=== PATIENT | female | born 1980 | race Caucasian/White ===

== ENCOUNTER 2017-10-15 09:51 | Emergency (ER) | payer SELFPAY ==
[~2017-10-15] VITALS: Ht 171.4 cm; Wt 53.5 kg
[2017-10-15 10:00] VITALS: BP 144/80; PULSE 86; RESP 18; O2SAT 99
--- NOTE | 2017-10-15 10:07 | PD ---
HPI Chief Complaint: Psychiatric Symptoms Time Seen by Provider: 10:00 Travel History International Travel<30 days: No Contact w/Intl Traveler<30days: No Traveled to known affect area: No History of Present Illness HPI 37-year-old female presents emergency department under the Orr act for suicidal attempt. Patient comes in with laceration to the left volar wrist , and right anterior ankle. Patient admits to doing the left wrist laceration, but is on sure how the right anterior ankle laceration occurred. Bleeding is controlled on both areas. Patient is due for tetanus. She denies loss of function in the left wrist and hand. She has no numbness or tingling. She denies significant pain. She has allergies to penicillin and prednisone. [facility] Past Medical History Asthma: Yes ?: Not Past Surgical History Other Surgery: Yes (breast) Social History Alcohol Use: Yes Tobacco Use: Yes Substance Use: No Allergies-Medications (Allergen,Severity, Reaction): Coded Allergies: Penicillins (Verified Allergy, Intermediate, 10/15/17) prednisone (Verified Allergy, Unknown, 10/15/17) Review of Systems Except as stated in HPI: all other systems reviewed are Neg General / Constitutional: No: Fever Eyes: No: Visual changes HENT: No: Headaches Cardiovascular: No: Chest Pain or Discomfort Respiratory: No: Shortness of Breath Gastrointestinal: No: Abdominal Pain Genitourinary: No: Dysuria Musculoskeletal: No: Pain Skin: Positive Lesions, No Rash Neurologic: No: Weakness Psychiatric: Positive: Depression (See history of present illness), Suicidal Ideations, No: Homicidal Ideation Endocrine: No: Polydipsia Hematologic/Lymphatic: No: Easy Bruising Physical Exam Narrative GENERAL: Patient appears in no obvious distress per SKIN: Warm and dry. Normal color. Normal turgor. Patient has superficial laceration to the right anterior ankle measuring 2-1/2 cm long it is not full- thickness. Patient is a full-thickness laceration to the volar left wrist measuring 2 cm in length. Bleeding is controlled on both lesions. HEAD: Atraumatic. Normocephalic. EYES: Pupils equal and round. No scleral icterus. No injection or drainage. ENT: No nasal bleeding or discharge. Mucous membranes pink and moist. Pharynx is clear. Airways patent NECK: Trachea midline. Supple and nontender CARDIOVASCULAR: Regular rate and rhythm. RESPIRATORY: No accessory muscle use. Clear to auscultation. Breath sounds equal bilaterally. GASTROINTESTINAL: Abdomen soft, non-tender, nondistended. Hepatic and splenic margins not palpable. MUSCULOSKELETAL: Extremities without clubbing, cyanosis, or edema. No obvious deformities. NEUROLOGICAL: Awake and alert. No obvious cranial nerve deficits. Motor grossly within normal limits. Five out of 5 muscle strength in the arms and legs. Normal speech. PSYCHIATRIC: Appropriate mood and affect; insight and judgment normal. Data Data Last Documented VS Vital Signs Date Time Temp Pulse Resp B/P (MAP) Pulse Ox O2 Delivery O2 Flow Rate FiO2 10/15/17 10:00 86 18 144/80 (101) 99 Orders Orders Complete Blood Count With Diff (10/15/17 10:05) Comprehensive Metabolic Panel (10/15/17 10:05) Thyroid Stimulating Hormone (10/15/17 10:05) Urinalysis - C+S If Indicated (10/15/17 10:05) Psych Screen (10/15/17 10:05) Drug Screen, Random Urine (10/15/17 10:05) Alcohol (Ethanol) (10/15/17 10:05) Lidocai-Epi 1%-1:100,000 Inj (Xylocaine- (10/15/17 10:15) Labs Laboratory Tests Test 10/15/17 10:15 White Blood Count 9.2 TH/MM3 Red Blood Count 4.20 MIL/MM3 Hemoglobin 14.5 GM/DL Hematocrit 39.9 % Mean Corpuscular Volume 95.2 FL Mean Corpuscular Hemoglobin 34.5 PG Mean Corpuscular Hemoglobin Concent 36.3 % Red Cell Distribution Width 12.1 % Platelet Count 270 TH/MM3 Mean Platelet Volume 8.6 FL Neutrophils (%) (Auto) 65.9 % Lymphocytes (%) (Auto) 23.7 % Monocytes (%) (Auto) 8.0 % Eosinophils (%) (Auto) 2.0 % Basophils (%) (Auto) 0.4 % Neutrophils # (Auto) 6.0 TH/MM3 Lymphocytes # (Auto) 2.2 TH/MM3 Monocytes # (Auto) 0.7 TH/MM3 Eosinophils # (Auto) 0.2 TH/MM3 Basophils # (Auto) 0.0 TH/MM3 CBC Comment AUTO DIFF MDM Medical Decision Making Medical Screen Exam Complete: Yes Emergency Medical Condition: Yes Differential Diagnosis Suicidal ideation. Suicidal attempt. Depression. Need for sutures. Narrative Course Patient is medically stable at time of exam. Psychiatric labs ordered per protocol. Lacerations are repaired. See laceration notes. Patient is medically cleared for psychiatric evaluation. Psych screen is ordered. Procedures Procedure Narrative LACERATION #1 LOCATION: Right anterior ankle LENGTH: 2.5 cm NUMBER OF STITCHES/ARUN: 3/4 inch Steri-Strips REPAIR: The area of the laceration was prepped with Betadine and sterilely draped. The wound was copiously irrigated and explored without evidence of foreign body, tendon injury or neurovascular injury. The wound was closed using Steri-Strips and Dermabond. This was a single layer repair. A sterile dressing was applied. The patient was advised to keep the dressing clean and dry. Patient tolerated the procedure well. LACERATION LOCATION: Left distal volar wrist LENGTH: 2 cm NUMBER OF STITCHES/ARUN: 7 interrupted horizontal mattress sutures REPAIR: The area of the laceration was prepped with Betadine and sterilely draped. The laceration was infiltrated with 3 mL's 1% lidocaine with epi. The wound was copiously irrigated and explored without evidence of foreign body, tendon injury or neurovascular injury. The wound was closed using 5-0 Prolene. This was a single layer repair. A sterile dressing was applied. The patient was advised to keep the dressing clean and dry. Patient tolerated the procedure well. Condition: Stable Ross Skelton October 15, 2017 10:07
[2017-10-15] MEDS ORDERED: LIDOCAINE 1%/EPINEPHrine 1:100,000 SOLN 20 ML VIAL INFIL ONE (10:15)
[2017-10-15 10:33] LABS: BASOPHIL % 0.4 % (0.0-2.0); EOSINOPHIL # 0.2 TH/MM3 (0-0.4); HEMATOCRIT 39.9 % (35.0-46.0); HEMOGLOBIN 14.5 GM/DL (11.6-15.3); LYMPH % 23.7 % (9.0-44.0); LYMPHOCYTE # 2.2 TH/MM3 (1.0-4.8); MEAN CELL VOLUME 95.2 FL (80.0-100.0); MEAN CORPUSCULAR HEMOGLOBIN 34.5 PG (27.0-34.0); MEAN PLATELET VOLUME 8.6 FL (7.0-11.0); MONOCYTE # 0.7 TH/MM3 (0-0.9); NEUT % 65.9 % (16.0-70.0); PLATELET COUNT 270 TH/MM3 (150-450); RED CELL DISTRIBUTION WIDTH 12.1 % (11.6-17.2); WHITE BLOOD COUNT 9.2 TH/MM3 (4.0-11.0)
[2017-10-15 10:35] LABS: MEAN CORPUSCULAR HGB CONC 36.3 % (32.0-36.0)
[2017-10-15 10:54] LABS: ALBUMIN 3.9 GM/DL (3.4-5.0); AST (GOT) 18 U/L (15-37); BICARBONATE 24.5 MEQ/L (21.0-32.0); BLOOD UREA NITROGEN 6 MG/DL (7-18); CALCIUM 8.4 MG/DL (8.5-10.1); CHLORIDE 110 MEQ/L (98-107); CREATININE 0.76 MG/DL (0.50-1.00); GLOMERULAR FILTRATION RATE 87 ML/MIN (>89); GLUCOSE,RANDOM 94 MG/DL (74-106); SODIUM (NA) 143 MEQ/L (136-145)
[2017-10-15 11:05] LABS: ALKALINE PHOSPHATASE 65 U/L (45-117); ALT (GPT) 22 U/L (10-53); TOTAL BILIRUBIN ADULT 0.3 MG/DL (0.2-1.0); TOTAL PROTEIN 7.3 GM/DL (6.4-8.2)
[2017-10-15] MEDS ORDERED: ONDANSETRON ODT 4 MG TAB PO ONE (11:30)
[2017-10-15 11:52] LABS: BACTERIA, URINE RARE /hpf; BILIRUBIN, URINE NEG (NEG); BLOOD, URINE NEG (NEG); GLUCOSE,URINE NEG (NEG); KETONE, URINE NEG (NEG); NITRITE,URINE NEG (NEG); SQUAMOUS EPITHELIAL CELL URINE 5 /hpf (0-5); URINE COLOR YELLOW (YELLW/STRAW); URINE LEUKOCYTE ESTERASE NEG (NEG)
[2017-10-15 13:58] VITALS: BP 145/83; PULSE 76; RESP 16; TEMP 98.7; O2SAT 98
[2017-10-15] MEDS ORDERED: ALBU6.7H INH (14:38)
--- NOTE | 2017-10-15 15:15 | PD ---
Physical Exam Date Seen by Provider: October 15, 2017 Narrative This patient seen here last night as a Orr Act. She was intoxicated and cut her wrist. She is now sober and remorseful. She denies suicidal ideation. Her mother is here and has no concerns. The mother is willing to take her home. Data Data Last Documented VS Vital Signs Date Time Temp Pulse Resp B/P (MAP) Pulse Ox O2 Delivery O2 Flow Rate FiO2 10/15/17 13:58 98.7 76 16 145/83 (103) 98 Room Air Orders Orders Complete Blood Count With Diff (10/15/17 10:05) Comprehensive Metabolic Panel (10/15/17 10:05) Thyroid Stimulating Hormone (10/15/17 10:05) Urinalysis - C+S If Indicated (10/15/17 10:05) Psych Screen (10/15/17 10:05) Drug Screen, Random Urine (10/15/17 10:05) Alcohol (Ethanol) (10/15/17 10:05) Lidocai-Epi 1%-1:100,000 Inj (Xylocaine- (10/15/17 10:15) Ondansetron Odt (Zofran Odt) (10/15/17 11:30) Ed Discharge Order (10/15/17 15:13) Labs Laboratory Tests Test 10/15/17 10:15 10/15/17 11:24 White Blood Count 9.2 TH/MM3 Red Blood Count 4.20 MIL/MM3 Hemoglobin 14.5 GM/DL Hematocrit 39.9 % Mean Corpuscular Volume 95.2 FL Mean Corpuscular Hemoglobin 34.5 PG Mean Corpuscular Hemoglobin Concent 36.3 % Red Cell Distribution Width 12.1 % Platelet Count 270 TH/MM3 Mean Platelet Volume 8.6 FL Neutrophils (%) (Auto) 65.9 % Lymphocytes (%) (Auto) 23.7 % Monocytes (%) (Auto) 8.0 % Eosinophils (%) (Auto) 2.0 % Basophils (%) (Auto) 0.4 % Neutrophils # (Auto) 6.0 TH/MM3 Lymphocytes # (Auto) 2.2 TH/MM3 Monocytes # (Auto) 0.7 TH/MM3 Eosinophils # (Auto) 0.2 TH/MM3 Basophils # (Auto) 0.0 TH/MM3 CBC Comment AUTO DIFF Differential Comment AUTO DIFF CONFIRMED Blood Urea Nitrogen 6 MG/DL Creatinine 0.76 MG/DL Random Glucose 94 MG/DL Total Protein 7.3 GM/DL Albumin 3.9 GM/DL Calcium Level 8.4 MG/DL Alkaline Phosphatase 65 U/L Aspartate Amino Transf (AST/SGOT) 18 U/L Alanine Aminotransferase (ALT/SGPT) 22 U/L Total Bilirubin 0.3 MG/DL Sodium Level 143 MEQ/L Potassium Level 3.7 MEQ/L Chloride Level 110 MEQ/L Carbon Dioxide Level 24.5 MEQ/L Anion Gap 9 MEQ/L Estimat Glomerular Filtration Rate 87 ML/MIN Thyroid Stimulating Hormone 3rd Gen 3.150 uIU/ML Ethyl Alcohol Level 85 MG/DL Urine Color YELLOW Urine Turbidity HAZY Urine pH 7.0 Urine Specific [place] 1.015 Urine Protein NEG mg/dL Urine Glucose (UA) NEG mg/dL Urine Ketones NEG mg/dL Urine Occult Blood NEG Urine Nitrite NEG Urine Bilirubin NEG Urine Urobilinogen LESS THAN 2.0 MG/DL Urine Leukocyte Esterase NEG Urine RBC 1 /hpf Urine WBC 1 /hpf Urine Squamous Epithelial Cells 5 /hpf Urine Bacteria RARE /hpf Microscopic Urinalysis Comment CULT NOT INDICATED Urine Opiates Screen NEG Urine Barbiturates Screen NEG Urine Amphetamines Screen NEG Urine Benzodiazepines Screen NEG Urine Cocaine Screen POS Urine Cannabinoids Screen POS MDM Supervised Visit with [facility]: No Narrative Course Orr Act has been lifted and she is being discharged. Diagnosis Primary Impression: Acute alcohol intoxication Qualified Codes: F10.929 - Alcohol use, unspecified with intoxication, unspecified Additional Impression: Laceration of left wrist Qualified Codes: S61.512A - Laceration without foreign body of left wrist, initial encounter Additional Instruction: Clean the wound twice daily with soap and water. Apply a thin layer of Neosporin ointment after you wash it. See your doctor in 7 days for suture removal. Seek care sooner for redness, drainage, warmth, unusual pain. Disposition: 01 DISCHARGE HOME Condition: Stable Marisela Alcala MD October 15, 2017 15:15
--- NOTE | 2017-10-15 15:44 | PD ---
History of Present Illness Chief Complaint: Psychiatric Symptoms Time Seen by Provider: 15:00 Travel History International Travel<30 Days: No Contact w/Intl Traveler<30days: No Known affected area: No Legal Status Legal Status: Orr Act Orr Act Signed By: Kendall Torres Orr Act Comment: Signed by [facility] Lizzie Ga #[id number]. History of Present Illness: This is a 37-year-old single, female who presents to this facility under Orr act for cutting her wrist and making suicidal threats to a credit products officer. Patient has not been seen at this facility previously for mental health issues. Reviewed electronic medical records, labs, discuss case with staff. Patient's blood alcohol level was elevated upon her arrival. Evaluation was performed in patient's room. Patient is awake, alert, and oriented 4. Her speech is clear , organized, and logical. There is no indication of internal stimuli nor thought blocking. She denies having suicidal ideation, homicidal ideation, auditory or visual hallucinations. She denies any previous mental health issues. She denies any previous suicide attempts. Corroborating information was obtained from her mother by LEO Galvan. Patient's mother is waiting in the parking lot hopeful to take her home at this time. She reports that she has no concerns about the patient. Patient states that she had an argument with her boyfriend and, "I got drunk and stupid". She reports feeling remorseful and states "well, I will never do that again". PFSH Past Medical History Asthma: Yes ?: Not Past Surgical History Other Surgery: Yes (breast) Psychiatric History Psychiatric History Denies History of Inpatient Treatment: No Guns or firearms in home: No Social History Hx Alcohol Use: Yes Hx Tobacco Use: Yes Hx Substance Use: No (Pt denies. ) Substance Use Type: Alcohol, Marijuana, Nicotine/Cigarettes, Cocaine Hx of Substance Use Treatment: No Allergies-Medications (Allergen,Severity, Reaction): Coded Allergies: Penicillins (Verified Allergy, Intermediate, 10/15/17) prednisone (Verified Allergy, Unknown, 10/15/17) Reported Meds & Prescriptions Reported Meds & Active Scripts Active Reported Proventil Hfa 6.7 GM Inh (Albuterol Sulfate) 90 Mcg/Act Aer 1 Puff INH Q4H PRN Mental Status Examination Appearance: Appropriate Consciousness: Alert Orientation: x4 Motor Activity: Normal gait Speech: Unremarkable Language: Adequate Fund of Knowledge: Adequate Attention and Concentration: Adequate Memory: Unremarkable Mood: Appropriate, Good Affect: Appropriate, Euthymic Thought Process & Associations: Intact Thought Content: Appropriate Hallucination Type: None Delusion Type: None Suicidal Ideation: No Suicidal Plan: No Suicidal Intention: No Homicidal Ideation: No Homicidal Plan: No Homicidal Intention: No Insight: Adequate Judgment: Impulsive MDM Medical Decision Making Medical Record Reviewed: Yes Assessment/Plan 37-year-old single, female who presented under [employer] act for cutting her wrist and making suicidal statements to credit products officer. Upon arrival patient was found to have a elevated blood alcohol level. Upon examination this afternoon patient denies having any suicidal ideation ideation. She denies having auditory or visual hallucinations. She does not appear to be internally stimulated. I can elicit no delusional material. Corroborating information was obtained from the mother by LEO Galvan. Patient's mother has been patiently waiting in the parking lot hoping to take her daughter home. She reports no concerns whatsoever.Patient lives with her mothe Given this patient has no previous history of self harm nor mental illness, she does not meet orr act criteria. She also does not meet inpatient admission criteria. [email or web address]. Consulted with , ER physician who also assessed the patient and concurs with my assessment. She therefore has lifted the Orr act. Patient will be discharged home. With instructions to return to this facility should her condition worsen. Orders Orders Complete Blood Count With Diff (10/15/17 10:05) Comprehensive Metabolic Panel (10/15/17 10:05) Thyroid Stimulating Hormone (10/15/17 10:05) Urinalysis - C+S If Indicated (10/15/17 10:05) Psych Screen (10/15/17 10:05) Drug Screen, Random Urine (10/15/17 10:05) Alcohol (Ethanol) (10/15/17 10:05) Lidocai-Epi 1%-1:100,000 Inj (Xylocaine- (10/15/17 10:15) Ondansetron Odt (Zofran Odt) (10/15/17 11:30) Ed Discharge Order (10/15/17 15:13) Results Vital Signs Date Time Temp Pulse Resp B/P (MAP) Pulse Ox O2 Delivery O2 Flow Rate FiO2 10/15/17 13:58 98.7 76 16 145/83 (103) 98 Room Air 10/15/17 10:00 86 18 144/80 (101) 99 Laboratory Tests Test 10/15/17 10:15 10/15/17 11:24 White Blood Count 9.2 Red Blood Count 4.20 Hemoglobin 14.5 Hematocrit 39.9 Mean Corpuscular Volume 95.2 Mean Corpuscular Hemoglobin 34.5 Mean Corpuscular Hemoglobin Concent 36.3 Red Cell Distribution Width 12.1 Platelet Count 270 Mean Platelet Volume 8.6 Neutrophils (%) (Auto) 65.9 Lymphocytes (%) (Auto) 23.7 Monocytes (%) (Auto) 8.0 Eosinophils (%) (Auto) 2.0 Basophils (%) (Auto) 0.4 Neutrophils # (Auto) 6.0 Lymphocytes # (Auto) 2.2 Monocytes # (Auto) 0.7 Eosinophils # (Auto) 0.2 Basophils # (Auto) 0.0 CBC Comment AUTO DIFF Differential Comment AUTO DIFF CONFIRMED Blood Urea Nitrogen 6 Creatinine 0.76 Random Glucose 94 Total Protein 7.3 Albumin 3.9 Calcium Level 8.4 Alkaline Phosphatase 65 Aspartate Amino Transf (AST/SGOT) 18 Alanine Aminotransferase (ALT/SGPT) 22 Total Bilirubin 0.3 Sodium Level 143 Potassium Level 3.7 Chloride Level 110 Carbon Dioxide Level 24.5 Anion Gap 9 Estimat Glomerular Filtration Rate 87 Thyroid Stimulating Hormone 3rd Gen 3.150 Ethyl Alcohol Level 85 Urine Color YELLOW Urine Turbidity HAZY Urine pH 7.0 Urine Specific [place] 1.015 Urine Protein NEG Urine Glucose (UA) NEG Urine Ketones NEG Urine Occult Blood NEG Urine Nitrite NEG Urine Bilirubin NEG Urine Urobilinogen LESS THAN 2.0 Urine Leukocyte Esterase NEG Urine RBC 1 Urine WBC 1 Urine Squamous Epithelial Cells 5 Urine Bacteria RARE Microscopic Urinalysis Comment CULT NOT INDICATED Urine Opiates Screen NEG Urine Barbiturates Screen NEG Urine Amphetamines Screen NEG Urine Benzodiazepines Screen NEG Urine Cocaine Screen POS Urine Cannabinoids Screen POS Diagnosis Primary Impression: Alcohol use with alcohol-induced mood disorder Psychiatrically Cleared: Yes Additional Instructions: Clean the wound twice daily with soap and water. Apply a thin layer of Neosporin ointment after you wash it. See your doctor in 7 days for suture removal. Seek care sooner for redness, drainage, warmth, unusual pain. Disposition: 01 DISCHARGE HOME Condition: Stable Kiesha Pedro October 15, 2017 15:44
== END 2017-10-15 16:05 | disposition home or self-care (01) ==
LOC: NEPD 09:51 → NEPJ 16:05
DX: F10.929 Alcohol use, unspecified with intoxication, unspecified (principal); F10.94 Alcohol use, unspecified with alcohol-induced mood disorder; F12.90 Cannabis use, unspecified, uncomplicated; F14.90 Cocaine use, unspecified, uncomplicated; S61.512A Laceration without foreign body of left wrist, initial encounter; S91.011A Laceration without foreign body, right ankle, initial encounter; J45.909 Unspecified asthma, uncomplicated; X78.9XXA Intentional self-harm by unspecified sharp object, initial encounter; Y90.4 Blood alcohol level of 80-99 mg/100 ml; Z72.0 Tobacco use
CPT/HCPCS: 12002; 80053; 80307; 81001; 84443; 85025